=== PATIENT | male | born 1960 | race Caucasian/White ===

== ENCOUNTER 2017-04-09 02:03 | Emergency (ER) | payer OTHER ==
[2017-04-09 02:08] VITALS: BP 101/58; PULSE 74; RESP 18; TEMP 97.4; O2SAT 98
--- NOTE | 2017-04-09 04:51 | PD ---
HPI Chief Complaint: Psychiatric Symptoms Time Seen by Provider: 04:40 Travel History International Travel<30 days: No Contact w/Intl Traveler<30days: No Traveled to known affect area: No History of Present Illness HPI 56-year-old white male [facility] to [place] in [facility] for psychological evaluation under his Dumont act. The patient has already been medically cleared. The patient states that it was just the alcohol. He has no intentions of hurting himself or hurting anyone. He admits to being homeless and drinking heavily today. He denies any medical complaints. Patient asks if he'll build go home later this afternoon. PFSH Past Medical History Depression: Yes Tetanus Vaccination: Unknown Past Surgical History Surgical History: No Previous Surgery Social History Alcohol Use: Yes ("A LOT") Tobacco Use: Yes Substance Use: No Allergies-Medications (Allergen,Severity, Reaction): Coded Allergies: Penicillins (Verified Allergy, Severe, Anaphylaxis, 04/08/17) Reported Meds & Prescriptions Reported Meds & Active Scripts Active No Active Prescriptions or Reported Medications Review of Systems General / Constitutional: No: Fever Eyes: No: Visual changes HENT: No: Headaches Cardiovascular: No: Chest Pain or Discomfort Respiratory: No: Shortness of Breath Gastrointestinal: No: Abdominal Pain Genitourinary: No: Dysuria Musculoskeletal: No: Pain Skin: No Rash Neurologic: No: Weakness Psychiatric: Positive: Mood Disorder, Substance Abuse, No: Anxiety, Depression , Suicidal Ideations, Disorder of Thought, Homicidal Ideation Endocrine: No: Polydipsia Hematologic/Lymphatic: No: Easy Bruising Physical Exam Narrative GENERAL: Well-nourished, well-developed patient. SKIN: Warm and dry. HEAD: Normocephalic and atraumatic. EYES: No scleral icterus. No injection or drainage. ENT: No nasal drainage noted. Mucous membranes pink. Airway patent. NECK: Supple, trachea midline. Moves head freely without obvious discomfort. CARDIOVASCULAR: Regular rate and rhythm without murmurs, gallops, or rubs. RESPIRATORY: Breath sounds equal bilaterally. No accessory muscle use. GASTROINTESTINAL: Abdomen soft, non-tender, nondistended. EXTREMITIES: No cyanosis or edema. BACK: Nontender without obvious deformity. No CVA tenderness. NEURO: Patient is alert and oriented. no sensorimotor deficits. Nonfocal. Normal speech. PSYCH: No delusions. No auditory or visual hallucinations. Data Data Last Documented VS Vital Signs Date Time Temp Pulse Resp B/P (MAP) Pulse Ox O2 Delivery O2 Flow Rate FiO2 04/09/17 02:08 97.4 74 18 101/58 (72) 98 Orders Orders Psych Screen (04/09/17 03:34) MDM Medical Decision Making Medical Screen Exam Complete: Yes Emergency Medical Condition: Yes Medical Record Reviewed: Yes Interpretation(s) lABORATORY TESTS HAVE BEEN REVIEWED. Differential Diagnosis MDM: High Differential diagnoses: Schizophrenia, schizoaffective disorder, bipolar, anxiety, depression, adjustment reaction, mood disorder NOS, ODD, depressive disorder NOS, dementia, dementia with agitation, psychosis NOS, substance induced mood disorder, DMDD, Asperger syndrome, infection,electrolyte abnormality, malingering. Narrative Course Mental health screening discussed with the patient. Psychiatric screen ordered. The patient is been medically cleared by the doctor at [facility]. The patient will be seen by the psychiatrist in the morning. This is medical clearance for psychiatric admission Diagnosis Primary Impression: Medical clearance for psychiatric admission Scripts No Active Prescriptions or Reported Meds Condition: Dereje Hill Apr 09, 2017 04:51
[2017-04-09 06:25] VITALS: BP 103/58; PULSE 73; RESP 17; O2SAT 98
[2017-04-09 15:09] VITALS: BP 103/58; PULSE 73; RESP 17; O2SAT 98
--- NOTE | 2017-04-09 15:12 | PD ---
Physical Exam Time Seen by Provider: 15:10 Narrative ABE Lorenzana has evaluated the patient, lifted Tim act and cleared the patient for discharge. Data Data Last Documented VS Vital Signs Date Time Temp Pulse Resp B/P (MAP) Pulse Ox O2 Delivery O2 Flow Rate FiO2 04/09/17 06:25 73 17 103/58 (73) 98 Room Air 04/09/17 02:08 97.4 Orders Orders Psych Screen (04/09/17 03:34) Diet Regular Basic (04/09/17 Breakfast) Diet Regular Basic (04/09/17 Lunch) MDM Supervised Visit with ANA LUISA: No Narrative Course ABE Lorenzana has evaluated the patient, lifted Tim act and cleared the patient for discharge. Patient contracts safety. Denies suicidal or homicidal ideations. Patient will be provided community resource packet to /MICHAEL for follow-up. Has friends and family for support. Patient was medically cleared by alternate provider prior to psych screening. Patient has been evaluated by psychiatry and and is now cleared for discharge. Diagnosis Primary Impression: Alcohol-induced mood disorder Referrals: MICHAEL (Out patient) [facility] Primary Care Physician Psychiatrist [facility] Patient Instructions: Abuse of Alcohol (ED), Alcohol Dependence (ED), Alcohol Intoxication (ED), General Instructions, Mood Disorders (ED) Additional Instruction: Contract safety to your self and others Stop drinking alcohol Follow-up with psychiatry Follow-up with primary care provider Follow-up with Sean Veliz Return to the emergency department immediately with worsening of symptoms Med/Other Pt SpecificInfo: No Change to Meds, No Meds Exist/No RX given Scripts No Active Prescriptions or Reported Meds Disposition: 01 DISCHARGE HOME Condition: Stable Pam Steel Apr 09, 2017 15:12
--- NOTE | 2017-04-09 15:19 | PD ---
History of Present Illness Chief Complaint: Psychiatric Symptoms Time Seen by Provider: 15:00 Travel History International Travel<30 Days: No Contact w/Intl Traveler<30days: No Known affected area: No Legal Status Legal Status: Dumont Act Dumont Act Signed By: Donna Dumont Act Comment: 2016 @ 2202 History of Present Illness: History of Present Illness HPI 56-year-old white with history of alcohol dependence who was found by the police intoxicated and in a parking lot . Upon arrival to the emergency department and no tone of the patient was combative and he was verbally threatening to a particular nurse. He stated he was going to bring a gun into [place] and kill her while continuing contact staff if they wanted to fight. Patient was intoxicated at the time. His blood alcohol level on arrival to the ED was 243. The patient was allowed to sober up clinically and control environment. He presented no agitation, no aggressive behavior, no suicidality. The patient is seen this morning unexamined. He is clinically sober. His speech is clear, logical, goal-directed. There is no gait disturbance or any other signs of intoxication. He denies any suicidal or homicidal ideation and in fact he states he does not remember anything that happened when he was brought to the hospital. He admits to drinking heavily and tells me that he has already initiated treatment for his alcohol dependence. [facility]. There is no evidence of any unstable mental illness as evidenced by no psychosis, no domenico, no hypomania. EMR is reviewed. He was evaluated in March for alcohol related issues. [facility] Past Medical History Depression: Yes Tetanus Vaccination: Unknown Past Surgical History Surgical History: No Previous Surgery Psychiatric History Psychiatric History Hx Psychiatric Treatment: DENIES any History of Inpatient Treatment: No Guns or firearms in home: No Social History Single, never . . Currently homeless. Hx Alcohol Use: Yes ("A LOT") Hx Tobacco Use: Yes Hx Substance Use: No Substance Use Type: Alcohol Hx of Substance Use Treatment: No Family Psychiatric History Negative Allergies-Medications (Allergen,Severity, Reaction): Coded Allergies: Penicillins (Verified Allergy, Severe, Anaphylaxis, 04/08/17) Reported Meds & Prescriptions Reported Meds & Active Scripts Active No Active Prescriptions or Reported Medications Review of Systems Psychiatric: DENIES: Anxiety, Confusion, Mood changes, Depression, Hallucinations, Agitation, Suicidal Ideation, Homicidal Ideation, Delusions Except as stated in HPI: all other systems reviewed are Neg Mental Status Examination Appearance: Appropriate, Malodorous Consciousness: Alert Orientation: x4 Motor Activity: Normal gait Speech: Unremarkable Language: Adequate Fund of Knowledge: Adequate Attention and Concentration: Adequate Memory: Unremarkable Mood: Appropriate Affect: Appropriate Thought Process & Associations: Intact, Logical Thought Content: Appropriate Hallucination Type: None Delusion Type: None Suicidal Ideation: No Suicidal Plan: No Suicidal Intention: No Homicidal Ideation: No Homicidal Plan: No Homicidal Intention: No Insight: Adequate Judgment: Adequate MDM Medical Decision Making Medical Record Reviewed: Yes Assessment/Plan 56-year-old male with no previous psychiatric history and history of alcohol dependence who while intoxicated was placed under a Dumont act. Patient upon arrival to the emergency department was threatening to harm a nurse and was agitated. The patient was allowed to sober up clinically. At this time the patient denies any suicidal homicidal ideation and admits that he does not remember having made any such statements. He also states that the statements that he may were as a result of his intoxication. No evidence of an unstable mental illness as defined under the Dumont act. He is requesting to be discharge and I find no grounds to keep him under the Dumont act. I have counseled him regarding AA and abstinence and he reports he will [facility]up at [facility]. The Dumont act is lifted. Psychiatrically clear for discharge. Orders Orders Psych Screen (04/09/17 03:34) Diet Regular Basic (04/09/17 Breakfast) Diet Regular Basic (04/09/17 Lunch) Ed Discharge Order (04/09/17 15:12) Results Vital Signs Date Time Temp Pulse Resp B/P (MAP) Pulse Ox O2 Delivery O2 Flow Rate FiO2 04/09/17 15:10 04/09/17 15:09 73 17 103/58 (73) 98 Room Air 04/09/17 06:25 73 17 103/58 (73) 98 Room Air 04/09/17 02:08 97.4 74 18 101/58 (72) 98 Diagnosis Primary Impression: Alcohol-induced mood disorder Additional Impression: Alcohol dependence with intoxication Psychiatrically Cleared: Yes Referrals: MICHAEL (Out patient) [facility] Primary Care Physician Psychiatrist [facility] Patient Instructions: General Instructions, Mood Disorders (ED), Alcohol Intoxication (ED), Abuse of Alcohol (ED), Alcohol Dependence (ED) Additional Instructions: Contract safety to your self and others Stop drinking alcohol Follow-up with psychiatry Follow-up with primary care provider Follow-up with Sean Lea/MICHAEL Return to the emergency department immediately with worsening of symptoms Med/ Other Pt Specific Info: No Meds Exist/No RX given Prescriptions No Active Prescriptions or Reported Meds Disposition: 01 DISCHARGE HOME Condition: Stable Problem Qualifiers Harriett Anna Apr 09, 2017 15:19
== END 2017-04-09 18:09 | disposition home or self-care (01) ==
LOC: NEPJ 02:03
DX: F10.14 Alcohol abuse with alcohol-induced mood disorder (principal); F10.229 Alcohol dependence with intoxication, unspecified; Z72.0 Tobacco use; Z59.0 Homelessness
CPT/HCPCS: 70450; 80053; 80307; 85025; 96372; 99283; 99285; J3486